=== PATIENT | male | born 1950 | race Caucasian/White ===

== ENCOUNTER 2017-05-25 14:37 | Outpatient (CLI) | payer MEDICARE, OTHER | END 2017-05-25 14:38 | disposition home or self-care (01) | LOC: BICRAD 14:37 | PROVIDERS: ATTEND Internal Medicine Rheumatology | DX: M25.511 Pain in right shoulder (principal); M19.011 Primary osteoarthritis, right shoulder ==

== ENCOUNTER 2018-04-17 08:47 | Outpatient (CLI) | payer MEDICARE, OTHER ==
--- NOTE | 2018-04-17 13:03 | CT ---
CT CHEST WITHOUT CONTRAST PULMONARY LUNG SCAN: Date: 04/17/18 HISTORY: Low dose screening. History of smoking. COMPARISON: Radiograph from 03/08/15. FINDINGS: Lung Screening Specific (Lung-RADS): There is a 4.0 x 3.0 mm nodule, axial image 173 of series 2, wh ich is solid with an ovoid shape. No other suspicious pulmonary nodules present. Potentially Significant Incidentals (Lung-RADS Category S): None. Pulmonary Incidentals: There is some subpleural articulation lingula with some round atelectasis. Th ere is some parenchymal scarring right lower lobe adjacent to the large bridging anterior osteophytes from the vertebra. No pneumothorax. No effusion. Other Incidentals: No pericardial effusion. No abnormality on limited evaluation of the upper abdome n. No acute osseous abnormality. No suspicious lytic or blastic lesions. IMPRESSION: 1. Lung-RADS Category 2: Benign appearance or behavior. Continued low dose screening in 12 months r ecommended. 2. Lung-RADS Category S: Negative. No new/unknown potentially significant incidental findings requi ring urgent additional evaluation. POS: [facility]
== END 2018-04-17 08:48 | disposition home or self-care (01) ==
LOC: CT 08:47
PROVIDERS: ATTEND Family Medicine
DX: Z87.891 Personal history of nicotine dependence (principal)
CPT/HCPCS: G0297

== ENCOUNTER 2019-06-20 08:32 | Day surgery (SDC) | payer MEDICARE, OTHER ==
[2019-06-19 16:33] VITALS: BMI 32.5
[2019-06-20 08:40] LABS: #Basophils 0.1 thou/uL (0.0-0.2); #Eosinphils 0.7 thou/uL (0.0-0.7); #Lymphocytes 2.3 thou/uL (1.20-3.40); %Basophils 0.9 % (0.0-1.0); %Eosinophils 4.7 % (0.0-10.0); %Lymphocytes 14.9 % (21.0-51.0); %Monocytes 6.8 % (0.0-10.0); %Neutrophils 72.6 % (42.0-75.0); Hemoglobin 13.1 g/dL (14.0-18.0); Mean Corpuscular HGB CONC 30.7 g/dL (32.0-36.0); Mean Corpuscular Volume 81.2 fL (78.0-98.0); Mean Platelet Volume 7.9 fL (7.4-10.4); Platelet Count 513 thou/uL (130-400); RBC Distribution Width 17.7 % (11.5-14.5); Red Blood Cell (RBC) Count 5.23 mill/uL (4.70-6.10); White Blood Cell (WBC) Count 15.2 thou/uL (4.8-10.8)
[2019-06-20 08:48] LABS: INR-International Normal Ratio 0.9; Prothrombin Time 11.8 SEC (12.0-14.7)
[2019-06-20 08:49] LABS: PTT 29.4 SEC (22.9-36.1)
[2019-06-20 09:46] VITALS: BP 148/93; TEMP 97.6
--- NOTE | 2019-06-20 11:37 | CT ---
CT GUIDED RIGHT ILIAC BONE MARROW ASPIRATION AND BIOPSY: CLINICAL HISTORY: Myeloproliferative disorder. Increased white blood cell count and increased platel ets.. PROCEDURE: The procedure including the risks and complications were explained to the patient, and informed conse nt was obtained. The patient was placed on the CT scan table in the prone position. Noncontrasted CT images were obtained through the pelvis. An area was marked overlying the RIGHT tanja c bone, and the area was meticulously prepped and draped in usual sterile fashion. The skin and subcutaneous tissues were infiltrated with buffered 1% lidocaine for local anesthesia. After a small skin incision was made, an 11-gauge needle was advanced and positioning was confirmed w ith axial CT images. Approximately 8 milliliters of bone marrow aspirate was obtained. The needle was then further advanced, and a bone marrow biopsy was performed. The needle was removed, and hemost asis was achieved with direct pressure. The patient tolerated the procedure well and without immediate complication. The patient was transported to radiology nurses holding area for further alvin toring prior to discharge. IMPRESSION: Technically successful percutaneous bone marrow aspiration and biopsy. Pathology results are pending.
--- NOTE | 2019-06-22 15:02 | CT ---
CT GUIDED RIGHT ILIAC BONE MARROW ASPIRATION AND BIOPSY: CLINICAL HISTORY: Myeloproliferative disorder. Increased white blood cell count and increased platel ets.. PROCEDURE: The procedure including the risks and complications were explained to the patient, and informed conse nt was obtained. The patient was placed on the CT scan table in the prone position. Noncontrasted CT images were obtained through the pelvis. An area was marked overlying the RIGHT tanja c bone, and the area was meticulously prepped and draped in usual sterile fashion. The skin and subcutaneous tissues were infiltrated with buffered 1% lidocaine for local anesthesia. After a small skin incision was made, an 11-gauge needle was advanced and positioning was confirmed w ith axial CT images. Approximately 8 milliliters of bone marrow aspirate was obtained. The needle was then further advanced, and a bone marrow biopsy was performed. The needle was removed, and hemost asis was achieved with direct pressure. The patient tolerated the procedure well and without immediate complication. The patient was transported to radiology nurses holding area for further alvin toring prior to discharge. IMPRESSION: Technically successful percutaneous bone marrow aspiration and biopsy. Pathology results are pending. Transcribed Date/Time: 06/22/2019 3:02 PM
== END 2019-06-20 11:25 | disposition home or self-care (01) ==
LOC: CT 08:32
PROVIDERS: ATTEND Internal Medicine Hematology & Oncology
PROC: 07DR3ZX Extraction of Iliac Bone Marrow, Percutaneous Approach, Diagnostic (ICD-10-PCS; principal; 2019-06-20)
DX: C94.6 Myelodysplastic disease, not elsewhere classified (principal); E11.9 Type 2 diabetes mellitus without complications; E78.5 Hyperlipidemia, unspecified; M19.90 Unspecified osteoarthritis, unspecified site; F41.9 Anxiety disorder, unspecified; E03.9 Hypothyroidism, unspecified; K21.9 Gastro-esophageal reflux disease without esophagitis; M10.9 Gout, unspecified; Z85.46 Personal history of malignant neoplasm of prostate; Z87.891 Personal history of nicotine dependence; Z79.899 Other long term (current) drug therapy
CPT/HCPCS: 20225; 36415; 77012; 85025; 85097; 85610; 85730; 88184; 88237; 88264; 88280; 88305; 88311; 88313; 88342

== ENCOUNTER 2020-11-03 14:15 | Outpatient (CLI) | payer MEDICARE, OTHER ==
[~2020-11-03 14:15] MED LIST: Magnevist 469MG/ML 20 ML VIAL ONE
== END 2020-11-03 14:16 | disposition home or self-care (01) ==
LOC: BICMRI 14:15
PROVIDERS: ATTEND Family Medicine
DX: I63.9 Cerebral infarction, unspecified (principal)
CPT/HCPCS: 70553; 82565; A9579

== ENCOUNTER 2022-08-18 14:04 | Outpatient (CLI) | payer MEDICARE, OTHER | END 2022-08-18 14:05 | disposition home or self-care (01) | LOC: MRI 14:04 | PROVIDERS: ATTEND Psychiatry & Neurology Neurology | DX: M51.16 Intervertebral disc disorders with radiculopathy, lumbar region (principal); M51.17 Intervertebral disc disorders with radiculopathy, lumbosacral region; M48.061 Spinal stenosis, lumbar region without neurogenic claudication | CPT/HCPCS: 72148 ==

== ENCOUNTER 2022-08-30 08:55 | Outpatient (CLI) | payer MEDICARE, OTHER | END 2022-08-30 08:56 | disposition home or self-care (01) | LOC: CT 08:55 | PROVIDERS: ATTEND Urology | DX: C61 Malignant neoplasm of prostate (principal); N28.89 Other specified disorders of kidney and ureter; N20.0 Calculus of kidney; R91.1 Solitary pulmonary nodule | CPT/HCPCS: 74178; 78306; A9503 ==

== ENCOUNTER 2023-01-25 09:25 | Outpatient (CLI) | payer MEDICARE, OTHER | END 2023-01-25 09:26 | disposition home or self-care (01) | LOC: ULT 09:25 | PROVIDERS: ATTEND Urology | DX: C64.2 Malignant neoplasm of left kidney, except renal pelvis (principal); C61 Malignant neoplasm of prostate; J18.9 Pneumonia, unspecified organism; N20.0 Calculus of kidney; N28.9 Disorder of kidney and ureter, unspecified; Z92.3 Personal history of irradiation; Z90.5 Acquired absence of kidney; Z96.0 Presence of urogenital implants | CPT/HCPCS: 36415; 71046; 74018; 76770; 80048; 81001; 84153; 85025; 87086 ==

== ENCOUNTER 2024-03-06 09:45 | Outpatient (CLI) | payer MEDICARE, OTHER | END 2024-03-06 09:46 | disposition home or self-care (01) | LOC: SCSMRI 09:45 | PROVIDERS: ATTEND Family Medicine | DX: R42 Dizziness and giddiness (principal) | CPT/HCPCS: 70551 ==